=== PATIENT | female | born 1950 | race Caucasian/White ===

== ENCOUNTER → 2017-09-09 | Outpatient (CLI) | payer MEDICARE, OTHER ==
[~2017-09-09] MED LIST: ASPI81CH PO; CIPR500 PO; CLOP75 PO; DOCU100 PO; ENOX40I SC; Flomax0.4 MG PO; GABA100; HYDCHL12.5 PO; IBUP800 PO; LISI20 PO; LISI5 PO; LOVA40 PO; METF500 PO; NAPR500 PO; Norco 10-325 T1 EACH PO; OMEP20ER PO; OXYACE7.5T PO; OXYC5 PO; PHENA200 PO; PROACE100 PO; Percocet 5-3251 EACH PO; Zofran Odt4 MG SL
== END | disposition home or self-care (01) ==
LOC: LAB UCHC 08:05
DX: R39.11 Hesitancy of micturition (principal)
CPT/HCPCS: 87086

== ENCOUNTER → 2018-07-03 | Outpatient (CLI) | payer MEDICARE, OTHER | END | disposition home or self-care (01) | LOC: LAB SHORT 10:21 → LAB 10:21 | DX: R35.0 Frequency of micturition (principal) | CPT/HCPCS: 87077; 87086; 87186 ==

== ENCOUNTER → 2019-09-20 | Outpatient (CLI) | payer MEDICARE ==
[~2019-09-20] MED LIST changes: +Aspir 8181 MG PO; +CYCL10 PO; +GABA100 PO; +HYDCHL25 PO; +OMEPRAZOLE20 MG PO; +TAMS.4ER PO; +TOPROL XL25 MG PO
[2019-09-21 14:07] LABS: Stool Occult Bld Immuno 1 Negative (NEGATIVE); Stool Occult Bld Immuno 2 Negative (NEGATIVE); Stool Occult Bld Immuno 3 Negative (NEGATIVE)
== END ==
LOC: LAB 09:57 → LAB SHORT 09:57 → LAB FUT 09-07 09:35
PROVIDERS: Nurse Practitioner Family
DX: D64.9 Anemia, unspecified (principal)
CPT/HCPCS: 82274

== ENCOUNTER 2019-12-21 05:46 | Day surgery (SDC) | payer MEDICARE ==
[~2019-12-21] VITALS: Ht 152.4 cm; Wt 100.0 kg
[~2019-12-21 05:46] MED LIST changes: +Imdur30 MG PO; +LIDO700A20 TOP
--- NOTE | 2019-12-21 10:15 | NUR ---
TR band deflated, site appears stable, no active bleeding or oozing noted. TR band remains on right wrist with arm board. Will continue to monitor. Call light in reach.
--- NOTE | 2019-12-21 10:33 | NUR ---
Pt getting dressed, daughter called for ride home. Right wrist still has TR band in place with no air in, arm board on for support. Site appears soft, non tender with no active bleeding, oozing, or pain noted. Pt ambulates with slow steady gait, unmeasured void. Denies SOB or CP. Discharge instructions reviewed with pt. Verbalized understanding, paperwork provided for her to take home. Encouraged to follow up with provider as scheduled.
--- NOTE | 2019-12-21 10:53 | NUR ---
TR band removed, red cloth dot dressing applied, site appears to be soft non tender with no active bleeding, oozing, or pain. Arm board on for support. IV removed from LAC with cath intact, pressure dressing applied. Pt daughter is on her way to drive pt home. Personal belongings placed in bag, pt request to be taken out to private vehicle via w/c. VSS.
== END 2019-12-21 11:15 | disposition home or self-care (01) ==
LOC: MHTC 05:46
PROC: 4A023N7 Measurement of Cardiac Sampling and Pressure, Left Heart, Percutaneous Approach (ICD-10-PCS; principal; 2019-12-21)
PROC: B201YZZ Plain Radiography of Multiple Coronary Arteries using Other Contrast (ICD-10-PCS; principal; 2019-12-21)
PROC: B205YZZ Plain Radiography of Left Heart using Other Contrast (ICD-10-PCS; principal; 2019-12-21)
DX: I25.10 Atherosclerotic heart disease of native coronary artery without angina pectoris (principal); E66.9 Obesity, unspecified; I10 Essential (primary) hypertension; E78.5 Hyperlipidemia, unspecified; K21.9 Gastro-esophageal reflux disease without esophagitis; E11.9 Type 2 diabetes mellitus without complications; Z79.82 Long term (current) use of aspirin; Z79.84 Long term (current) use of oral hypoglycemic drugs; Z79.02 Long term (current) use of antithrombotics/antiplatelets; Z68.41 Body mass index [BMI] 40.0-44.9, adult
CPT/HCPCS: 76937; 93454; 99152; C1769; C1894; J1644; J2250; J3010; J7030; Q9967

== ENCOUNTER 2020-01-18 21:14 | Emergency (ER) | payer MEDICARE ==
[~2020-01-18] VITALS: Ht 152.4 cm; Wt 99.8 kg
[2020-01-18 21:41] LABS: BASOPHILS ABSOLUTE AUTO 0.04 K/mm3 (0.00-0.23); BASOPHILS PERCENT AUTO 0 % (0-2); EOSINOPHILS ABSOLUTE AUTO 0.13 K/mm3 (0.00-0.68); EOSINOPHILS PERCENT AUTO 1 % (0-6); Hematocrit 39.1 % (33.0-51.0); Hemoglobin 12.5 g/dL (11.5-16.0); IMMATURE GRAN ABSOLUTE AUTO 0.06 K/mm3 (0.00-0.10); IMMATURE GRAN PERCENT AUTO 0 % (0-1); LYMPHOCYTES ABSOLUTE AUTO 2.65 K/mm3 (0.84-5.20); LYMPHOCYTES PERCENT AUTO 19 % (21-46); MONOCYTES ABSOLUTE AUTO 0.97 K/mm3 (0.16-1.47); MONOCYTES PERCENT AUTO 7 % (4-13); Mean Corpuscular HGB 28.7 pg (26.0-34.0); Mean Corpuscular Volume 90 fL (80-100); NEUTROPHILS PERCENT AUTO 73 % (41-73); Platelet Count 451 K/mm3 (150-400); RDW Coefficient Variation 13.8 % (11.7-14.2); RDW Standard Deviation 44.8 fL (35.1-46.3); Red Blood Cell Count 4.36 M/mm3 (3.80-5.20); White Blood Cell Count 14.35 K/mm3 (4.00-11.30)
[2020-01-18 22:00] LABS: Alanine Aminotransfer (ALT/SGP 14 U/L (12-78); Albumin, Blood 3.3 g/dL (3.4-5.0); Alk Phos 56 U/L (50-136); Anion Gap 7 mmol/L (6-16); Aspartate Aminotrans (AST/SGOT 6 U/L (12-37); Bilirubin, Total 0.3 mg/dL (0.1-1.0); Blood Urea Nitrogen 14 mg/dL (8-24); Bun/Creatinine Ratio 21.9 (12.0-20.0); CO2, Blood 28 mmol/L (21-32); Calcium, Blood 9.1 mg/dL (8.5-10.1); Chloride, Blood 102 mmol/L (98-108); Creatinine, Blood 0.64 mg/dL (0.40-1.00); Globulin, Blood 3.4 g/dL (2.2-4.0); Glomerular Filtration Rate >60 (60-); Glucose, Blood 134 mg/dL (70-99); Sodium, Blood 137 mmol/L (136-145); Total Protein, Blood 6.7 g/dL (6.4-8.2); Troponin I <0.015 ng/mL (0.000-0.040)
[2020-01-18 23:11] LABS: Source, Urine Clean Catch
[2020-01-18 23:15] LABS: Bilirubin, Urine Neg (Neg); Blood, Urine 4+ (Neg); Glucose Qualitative, Urine Neg (Neg); Ketones, Urine Neg (Neg); Leukocyte Esterase, Urine 2+ (Neg); Nitrite, Urine Neg (Neg); Protein, Urine 2+ (Neg); Urobilinogen, Urine NORM (Normal)
[2020-01-18 23:16] LABS: Appearance, Urine Clear (Clear); Color, Urine Yellow (P-Yellow)
[2020-01-18 23:21] LABS: Bacteria Mod /hpf; Squamous Epithelial Cells Few /hpf (Few)
== END 2020-01-18 23:57 | disposition home or self-care (01) ==
LOC: ER 21:14
PROVIDERS: Emergency Medicine
DX: R07.9 Chest pain, unspecified (principal); Z79.82 Long term (current) use of aspirin; Z79.899 Other long term (current) drug therapy
CPT/HCPCS: 80053; 81001; 84484; 85025; 87086; 93005; 93010; 99285-25

== ENCOUNTER 2020-05-27 17:47 | Observation (INO) | payer MEDICARE ==
[~2020-05-27] VITALS: Ht 152.4 cm; Wt 109.9 kg
[~2020-05-27 17:47] MED LIST changes: +Lovastatin10 MG PO
[2020-05-27 18:30] LABS: BASOPHILS ABSOLUTE AUTO 0.02 K/mm3 (0.00-0.23); BASOPHILS PERCENT AUTO 0 % (0-2); EOSINOPHILS ABSOLUTE AUTO 0.01 K/mm3 (0.00-0.68); EOSINOPHILS PERCENT AUTO 0 % (0-6); Hematocrit 40.6 % (33.0-51.0); Hemoglobin 12.7 g/dL (11.5-16.0); IMMATURE GRAN ABSOLUTE AUTO 0.17 K/mm3 (0.00-0.10); IMMATURE GRAN PERCENT AUTO 1 % (0-1); LYMPHOCYTES ABSOLUTE AUTO 0.84 K/mm3 (0.84-5.20); LYMPHOCYTES PERCENT AUTO 4 % (21-46); MONOCYTES ABSOLUTE AUTO 1.34 K/mm3 (0.16-1.47); MONOCYTES PERCENT AUTO 7 % (4-13); Mean Corpuscular HGB 29.1 pg (26.0-34.0); Mean Corpuscular HGB Conc 31.3 g/dL (31.5-36.5); Mean Corpuscular Volume 93 fL (80-100); Mean Platelet Volume 9.2 fL (9.1-12.4); NEUTROPHILS ABSOLUTE AUTO 17.86 K/mm3 (1.96-9.15); NEUTROPHILS PERCENT AUTO 88 % (41-73); Platelet Count 286 K/mm3 (150-400); RDW Coefficient Variation 12.6 % (11.7-14.2); RDW Standard Deviation 43.4 fL (35.1-46.3); Red Blood Cell Count 4.37 M/mm3 (3.80-5.20); White Blood Cell Count 20.24 K/mm3 (4.00-11.30)
[2020-05-27 18:54] LABS: Alanine Aminotransfer (ALT/SGP 15 U/L (12-78); Albumin/Globulin Ratio 0.8 (0.8-1.8); Alk Phos 75 U/L (50-136); Anion Gap 12 mmol/L (6-16); Aspartate Aminotrans (AST/SGOT 19 U/L (12-37); Bilirubin, Total 0.7 mg/dL (0.1-1.0); Blood Urea Nitrogen 28 mg/dL (8-24); Bun/Creatinine Ratio 32.5 (12.0-20.0); CO2, Blood 25 mmol/L (21-32); Calcium, Blood 9.6 mg/dL (8.5-10.1); Chloride, Blood 102 mmol/L (98-108); Creatinine, Blood 0.86 mg/dL (0.40-1.00); Globulin, Blood 3.6 g/dL (2.2-4.0); Glomerular Filtration Rate >60 (60-); Glucose, Blood 151 mg/dL (70-99); Potassium, Blood 3.6 mmol/L (3.5-5.5); Sodium, Blood 139 mmol/L (136-145); Total Protein, Blood 6.6 g/dL (6.4-8.2)
[2020-05-27 19:27] LABS: Source, Urine Clean Catch
[2020-05-27 19:29] LABS: Appearance, Urine Hazy (Clear); Bilirubin, Urine Neg (Neg); Blood, Urine 4+ (Neg); Color, Urine Amber (P-Yellow); Glucose Qualitative, Urine Neg (Neg); Ketones, Urine Neg (Neg); Leukocyte Esterase, Urine 3+ (Neg); Nitrite, Urine Neg (Neg); Protein, Urine 3+ (Neg); Specific Gravity, Urine 1.015 (1.003-1.022); Urobilinogen, Urine NORM (Normal)
[2020-05-27 19:38] LABS: Bacteria Many /hpf; Squamous Epithelial Cells Few /hpf (Few); White Blood Cells, Urine TNTC /hpf (0-5)
[2020-05-27 19:39] LABS: Influenza A, PCR Negative (NEGATIVE); Influenza B, PCR Negative (NEGATIVE); Resp Syncytial Virus, PCR Negative (NEGATIVE); SARS-Cov-2 (COVID-19) PCR, MMC Negative (NEGATIVE)
[2020-05-27] MEDS ORDERED: KEFLEX500 MG PO (21:02)
[2020-05-27] MEDS ORDERED: NEURONTIN300 MG PO (21:55)
[2020-05-27] MEDS ORDERED: ISOSORBIDE MONO60 MG PO (21:55)
[2020-05-27] MEDS ORDERED: GLUCOPHAGE1000 M3 PO (21:56)
--- NOTE | 2020-05-27 23:00 | NUR ---
PT ARRIVED FROM ER VIA STRETCHER; SLIDER SHEET USED TO SLIDE PT OVER TO BED; DENIES CHEST PAIN; BP SOFT; HR 102; O2 SATS >93 ON RA; PT STATES RA BASELINE; PT IS A&O X 3-4; ANSWERS MOST QUESTIONS APPROPRIATELY, AT TIMES ANSWERS DO NOT SEEM TO LINE UP; NS INFUSING IN LEFT HAND IV; PT STATES SHE GETS UTI'S FREQUENTLY "ALWAYS THIS TIME OF YEAR"; ORIENTED TO ROOM, CALL LIGHT AND SAFETY; CALL LIGHT IN REACH; BED IN LOWES POSITION.
--- NOTE | 2020-05-28 03:59 | NUR ---
UPDATE PT SHIVERING UNCONTROLABLY, STATES SHE IS COLD; VSS; ORAL TEMP NOTED OF 100.7; TYLENOL ADMINISTERED PER EMAR; CALL LIGHT IN REACH; BED IN LOWEST POSITION; BED ALARM ON
--- NOTE | 2020-05-28 06:49 | NUR ---
SHIFT SUMMARY PT TEMP CLIMBED TO 102.7; CURRENTLY DOWN TO 99.9 AFTER TYLENOL AND REMOVING BLAKENTS; PT HAD INCONTINENT BM THIS AM; DENITRATOR ASSISTED W/ BED BATH; VSS; HR ELEVATES W/ AMBULATION FOR BRP; PT PLACED ON 2L NC WHEN SHE WAS EXPERIENCING SHIVERING EPISODE DUE TO SOB; PT NO LONGER SHIVERING AND NOW STATES SHE IS HOT; CALLS APPROPRIATELY; SKID FREE SOCKS IN PLACE AND EDUCATED ON FPR; CALL LIGHT IN REACH; BED IN LOWEST POSITION; BED ALARM ON; WILL CONTINUE TO MONITOR CLOSELY UNTIL HAND OFF TO DAY SHIFT RN.
[2020-05-28 09:16] LABS: BASOPHILS ABSOLUTE AUTO 0.04 K/mm3 (0.00-0.23); BASOPHILS PERCENT AUTO 0 % (0-2); EOSINOPHILS ABSOLUTE AUTO 0.01 K/mm3 (0.00-0.68); EOSINOPHILS PERCENT AUTO 0 % (0-6); Hematocrit 33.6 % (33.0-51.0); Hemoglobin 10.9 g/dL (11.5-16.0); IMMATURE GRAN ABSOLUTE AUTO 0.14 K/mm3 (0.00-0.10); IMMATURE GRAN PERCENT AUTO 1 % (0-1); LYMPHOCYTES ABSOLUTE AUTO 0.33 K/mm3 (0.84-5.20); LYMPHOCYTES PERCENT AUTO 2 % (21-46); MONOCYTES ABSOLUTE AUTO 1.12 K/mm3 (0.16-1.47); MONOCYTES PERCENT AUTO 6 % (4-13); Mean Corpuscular HGB 29.7 pg (26.0-34.0); Mean Corpuscular HGB Conc 32.4 g/dL (31.5-36.5); Mean Corpuscular Volume 92 fL (80-100); Mean Platelet Volume 9.5 fL (9.1-12.4); NEUTROPHILS ABSOLUTE AUTO 16.05 K/mm3 (1.96-9.15); NEUTROPHILS PERCENT AUTO 91 % (41-73); Platelet Count 204 K/mm3 (150-400); RDW Coefficient Variation 12.8 % (11.7-14.2); RDW Standard Deviation 42.3 fL (35.1-46.3); Red Blood Cell Count 3.67 M/mm3 (3.80-5.20); White Blood Cell Count 17.69 K/mm3 (4.00-11.30)
[2020-05-28 09:33] LABS: Alanine Aminotransfer (ALT/SGP 15 U/L (12-78); Albumin, Blood 2.3 g/dL (3.4-5.0); Albumin/Globulin Ratio 0.8 (0.8-1.8); Alk Phos 68 U/L (50-136); Anion Gap 10 mmol/L (6-16); Aspartate Aminotrans (AST/SGOT 15 U/L (12-37); Bilirubin, Total 0.6 mg/dL (0.1-1.0); Blood Urea Nitrogen 24 mg/dL (8-24); Bun/Creatinine Ratio 32.1 (12.0-20.0); CO2, Blood 21 mmol/L (21-32); Calcium, Blood 7.8 mg/dL (8.5-10.1); Chloride, Blood 113 mmol/L (98-108); Creatinine, Blood 0.75 mg/dL (0.40-1.00); Glomerular Filtration Rate >60 (60-); Glucose, Blood 235 mg/dL (70-99); Potassium, Blood 3.7 mmol/L (3.5-5.5); Sodium, Blood 144 mmol/L (136-145); Total Protein, Blood 5.3 g/dL (6.4-8.2)
--- NOTE | 2020-05-28 12:46 | NUR ---
AT 1130, PATIENT STATED THAT SHE WAS "STARTING TO GET THE SHAKES". SHE HAD JUST RETURNED FROM THE BATHROOM. VSS. TEMP 98.2. SMALL SHAKES NOTED. SPO2 IN 90'S ON RA. PATIENT REQUESTING TYLENOL FOR PAIN IN HER BACK AND "ALL OVER" R/T SHAKING YESTERDAY. AT 1205, PATIENT STATED THAT SHAKING WAS "GETTING WORSE". I COULD SEE THAT SHE WAS SHAKING. SHE HAD BLANKETS OVER HER. SPO2 NOTED TO BE 88% ON RA, PLACED HER ON 2L O2 VIA NC. TEMP 98.0. WHEEZES NOTED IN UPPER LOBES. HEART RATE UP TO THE 1TEENS, SINUS TACH. ADMINISTERED TYLENOL FOR PAIN. NOTIFIED DR. PATE OF SHAKING, TEMP, AND WHEEZING. DR. PATE REVIEWED CHART. NO NEW ORDERS RECEIVED AT THIS TIME.
--- NOTE | 2020-05-28 13:00 | NUR ---
PATIENT UP TO BATHROOM WITH SBA. STATES THAT HER SHAKES HAVE GOTTEN "MUCH BETTER". ABLE TO STAND AND AMBULATE TO THE BATHROOM WITH SBA.
--- NOTE | 2020-05-28 14:11 | NUR ---
CALLED DR. PATE. NOTIFIED HER THAT PATIENT'S TEMPERATURE SPIKED TO 101.8 TEMPORALLY, 102.2 ORALLY. HEART RATE IN THE 90'S. PATIENT RECEIVED TYLENOL [address] PO [address] PATE ORDERED AZITHROMYCIN 500 MG PO DAILY STARTING NOW. SAID SHE WILL BE BY TO SEE THE PATIENT LATER.
--- NOTE | 2020-05-28 19:25 | NUR ---
SHIFT SUMMARY: PATIENT A/OX3. MEDICATED FOR BACK PAIN WITH TYLENOL WITH GOOD EFFECT, PATIENT STATES PAIN IS R/T THE HOSPITAL BED. 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 HAD TEMP THIS AFTERNOON 102.2, MD AWARE AND AZITHROMYCIN STARTED, TEMP DOWN TO 98.2. HAD EPISODE OF SHIVERING, ELEVATED HEART RATE, AND NEEDED 2L OXYGEN FOR SPO2 <90%, MD NOTIFIED. EPISODE RESOLVED ON ITS OWN. PATIENT ON ROOM AIR AT THIS TIME. UP WITH SBA TO BATHROOM. GAVE PATIENT EDUCATION ON MEDICATIONS AND SEPSIS DIAGNOSIS WELL A [place]...Exactly WORD SEARCH PER HER REQUEST. REPORT GIVEN TO JACKIE CARPENTER.
[2020-05-29 04:10] LABS: BASOPHILS ABSOLUTE AUTO 0.01 K/mm3 (0.00-0.23); BASOPHILS PERCENT AUTO 0 % (0-2); EOSINOPHILS ABSOLUTE AUTO 0.04 K/mm3 (0.00-0.68); EOSINOPHILS PERCENT AUTO 0 % (0-6); Hematocrit 33.8 % (33.0-51.0); Hemoglobin 10.5 g/dL (11.5-16.0); IMMATURE GRAN ABSOLUTE AUTO 0.09 K/mm3 (0.00-0.10); IMMATURE GRAN PERCENT AUTO 1 % (0-1); LYMPHOCYTES ABSOLUTE AUTO 0.84 K/mm3 (0.84-5.20); LYMPHOCYTES PERCENT AUTO 7 % (21-46); MONOCYTES ABSOLUTE AUTO 1.52 K/mm3 (0.16-1.47); MONOCYTES PERCENT AUTO 12 % (4-13); Mean Corpuscular HGB 28.6 pg (26.0-34.0); Mean Corpuscular HGB Conc 31.1 g/dL (31.5-36.5); Mean Corpuscular Volume 92 fL (80-100); NEUTROPHILS ABSOLUTE AUTO 9.99 K/mm3 (1.96-9.15); NEUTROPHILS PERCENT AUTO 80 % (41-73); Platelet Count 189 K/mm3 (150-400); RDW Coefficient Variation 12.8 % (11.7-14.2); RDW Standard Deviation 43.5 fL (35.1-46.3); Red Blood Cell Count 3.67 M/mm3 (3.80-5.20); White Blood Cell Count 12.49 K/mm3 (4.00-11.30)
[2020-05-29 04:22] LABS: Anion Gap 5 mmol/L (6-16); Blood Urea Nitrogen 18 mg/dL (8-24); Bun/Creatinine Ratio 23.9 (12.0-20.0); CO2, Blood 26 mmol/L (21-32); Calcium, Blood 8.4 mg/dL (8.5-10.1); Chloride, Blood 112 mmol/L (98-108); Creatinine, Blood 0.75 mg/dL (0.40-1.00); Glomerular Filtration Rate >60 (60-); Glucose, Blood 176 mg/dL (70-99); Potassium, Blood 3.9 mmol/L (3.5-5.5); Sodium, Blood 143 mmol/L (136-145)
--- NOTE | 2020-05-29 07:37 | NUR ---
RECEIVED REPORT FROM PAULINE PARR. ASSUMING CARE OF PT. PT IS RESTING QUIETLY IN BED WITH TV ON, CALL LIGHT WITHIN REACH.
--- NOTE | 2020-05-29 07:39 | NUR ---
SHIFT SUMMARY PT WAS FEBRILE AT START OF SHIFT, 101F, SHAKING AND STATED HAVING DIFFICULTIES BREATHING, O2 SATS DROPPED INTO THE 80'S. GOT PT SETTLED BACK IN BED, GAVE PRN ACETAMINOPHEN, AND PT WAS PUT ON CPAP PER PT REQUEST STATING SHE WEARS ONE AT HOME. O2 SATS, SHAKING, AND FEVER RESOLVED AND PT WAS ABLE TO SLEEP. PT TOOK OF CPAP AND O2 SATS WERE HIGH 80'S, WHEN PT WOKE UP O2 SATS RESOLVED BACK TO THE 90'S. VITALS WERE STABLE. PT HAD AN OTHERWISE UNEVENTFUL NIGHT. WILL CONTINUE TO MONITOR UNTIL SHIFT CHANGE.
--- NOTE | 2020-05-29 17:39 | NUR ---
SHIFT SUMMARY: PT CONTINUES A&OX4 T/OUT SHIFT, STAYED AFEBRILE W/NO CHILLS OR EPISODES OF TACHYCARDIA. PT C/O CHRONIC LOW BACK PAIN, PT MEDICATED WITH LIDOCAINE PATCH PER DR PATE. PT ABLE TO AMBULATE TO AND FROM RESTROOM, TOLERATES WELL WITH MINIMAL DESATURATION. CURRENTLY, PT RESTING IN BEDSIDE CHAIR ON ROOM AIR, MAINTAINING O2 SAT >93%. WILL CONTINUE TO MONITOR AND TREAT ACCORDINGLY UNTIL REPORT TO ONCOMING RN.
[2020-05-30 04:33] LABS: BASOPHILS ABSOLUTE AUTO 0.02 K/mm3 (0.00-0.23); BASOPHILS PERCENT AUTO 0 % (0-2); EOSINOPHILS ABSOLUTE AUTO 0.13 K/mm3 (0.00-0.68); EOSINOPHILS PERCENT AUTO 1 % (0-6); Hematocrit 31.4 % (33.0-51.0); Hemoglobin 10.1 g/dL (11.5-16.0); IMMATURE GRAN ABSOLUTE AUTO 0.08 K/mm3 (0.00-0.10); IMMATURE GRAN PERCENT AUTO 1 % (0-1); LYMPHOCYTES ABSOLUTE AUTO 1.19 K/mm3 (0.84-5.20); LYMPHOCYTES PERCENT AUTO 12 % (21-46); MONOCYTES ABSOLUTE AUTO 1.19 K/mm3 (0.16-1.47); MONOCYTES PERCENT AUTO 12 % (4-13); Mean Corpuscular HGB 29.2 pg (26.0-34.0); Mean Corpuscular HGB Conc 32.2 g/dL (31.5-36.5); Mean Corpuscular Volume 91 fL (80-100); Mean Platelet Volume 10.4 fL (9.1-12.4); NEUTROPHILS ABSOLUTE AUTO 7.63 K/mm3 (1.96-9.15); NEUTROPHILS PERCENT AUTO 75 % (41-73); Platelet Count 179 K/mm3 (150-400); RDW Standard Deviation 42.5 fL (35.1-46.3); Red Blood Cell Count 3.46 M/mm3 (3.80-5.20); White Blood Cell Count 10.24 K/mm3 (4.00-11.30)
[2020-05-30 04:51] LABS: Anion Gap 4 mmol/L (6-16); Blood Urea Nitrogen 16 mg/dL (8-24); Bun/Creatinine Ratio 27.9 (12.0-20.0); CO2, Blood 26 mmol/L (21-32); Calcium, Blood 8.5 mg/dL (8.5-10.1); Chloride, Blood 110 mmol/L (98-108); Creatinine, Blood 0.57 mg/dL (0.40-1.00); Glomerular Filtration Rate >60 (60-); Glucose, Blood 147 mg/dL (70-99); Sodium, Blood 140 mmol/L (136-145)
--- NOTE | 2020-05-30 05:27 | NUR ---
SHIFT SUMMARY PT WAS PLEASENT AND COOPERATIVE WITH CARE. DENIED ANY CHEST PAIN OR SOB. DID NOT HAVE A FEVER. PT SLEPT WITH CPAP ON WITH 2LPM BLEED-IN AND O2 SATS WERE IN THE 90'S. ON ROOM AIR WHEN AWAKE WITH O2 SATS ABOVE 90%. PT STATED MILD DISCOMFORT IN HER SHOULDER, HEAT PAD WAS PLACED ON SHOULDER AND PT WAS ABLE TO SLEEP. VITALS WERE STABLE WITH BP 120-130'S SYSTOLIC, HR IN THE 80'S. PT HAD A VERY QUIET UNEVENTFUL NIGHT. WILL CONTINUE TO MONITOR UNTIL SHIFT CHANGE.
[2020-05-30] MEDS ORDERED: CEFD300 PO (12:24)
[2020-05-30] MEDS ORDERED: LIDOCAINE1 EAC1 TOP (12:25)
[2020-05-30] MEDS ORDERED: ACET325 PO (12:25)
== END 2020-05-30 12:50 | disposition home or self-care (01) ==
LOC: ER 17:47 → PCU 17:48
PROVIDERS: Emergency Medicine; Student in an Organized Health Care Education/Training Program; ADMIT Internal Medicine
DX: A41.9 Sepsis, unspecified organism (principal); N39.0 Urinary tract infection, site not specified; R65.20 Severe sepsis without septic shock; B96.20 Unspecified Escherichia coli [E. coli] as the cause of diseases classified elsewhere; B95.2 Enterococcus as the cause of diseases classified elsewhere; N20.0 Calculus of kidney; E86.0 Dehydration; I10 Essential (primary) hypertension; E11.9 Type 2 diabetes mellitus without complications; Z79.84 Long term (current) use of oral hypoglycemic drugs; Z79.82 Long term (current) use of aspirin; Z79.02 Long term (current) use of antithrombotics/antiplatelets; Z79.899 Other long term (current) drug therapy; Z86.73 Personal history of transient ischemic attack (TIA), and cerebral infarction without residual deficits; Z96.652 Presence of left artificial knee joint; Z87.440 Personal history of urinary (tract) infections; Z20.828 Contact with and (suspected) exposure to other viral communicable diseases; Z87.442 Personal history of urinary calculi
CPT/HCPCS: 0241U; 36415; 71045; 71250; 76770; 80048; 80053; 81001; 82947; 83605; 83880; 85025; 87077; 87086; 87186; 94660; 94762; 96361; 96365; 99285-25; A9270; A9270-GY; J0696; J1650; J7030

== ENCOUNTER → 2020-07-21 | Outpatient (CLI) | payer MEDICARE ==
[~2020-07-21] MED LIST changes: +ACET325 PO; +CEFD300 PO; +GLUCOPHAGE1000 M3 PO; +ISOSORBIDE MONO60 MG PO; +KEFLEX500 MG PO; +LIDOCAINE1 EAC1 TOP; +NEURONTIN300 MG PO
== END | disposition home or self-care (01) ==
LOC: LAB SHORT 12:54 → LAB 12:54
DX: N39.0 Urinary tract infection, site not specified (principal)
CPT/HCPCS: 87077; 87086; 87186

== ENCOUNTER → 2020-09-01 | Outpatient (CLI) | payer MEDICARE ==
[2020-09-01 12:08] LABS: Source, Urine Clean Catch
[2020-09-01 18:58] LABS: Appearance, Urine Hazy (Clear); Bilirubin, Urine Neg (Neg); Blood, Urine 1+ (Neg); Color, Urine Yellow (P-Yellow); Glucose Qualitative, Urine Neg (Neg); Ketones, Urine Neg (Neg); Leukocyte Esterase, Urine 3+ (Neg); Nitrite, Urine Pos (Neg); Protein, Urine 2+ (Neg); Specific Gravity, Urine 1.015 (1.003-1.022); Urobilinogen, Urine NORM (Normal)
[2020-09-01 19:05] LABS: Red Blood Cells, Urine Rare /hpf (0-2); Squamous Epithelial Cells Few /hpf (Few); White Blood Cells, Urine TNTC /hpf (0-5)
[2020-09-01 19:06] LABS: Bacteria Many /hpf
== END | disposition home or self-care (01) ==
LOC: LAB SHORT 12:05 → LAB 12:05
PROVIDERS: Family Medicine
DX: R35.0 Frequency of micturition (principal)
CPT/HCPCS: 81001; 87077; 87086; 87186

== ENCOUNTER → 2021-02-03 | Outpatient (CLI) | payer MEDICARE ==
[2021-02-03 17:19] LABS: Creatinine, Urine Random 64.1 mg/dL (27.00-270.00)
[2021-02-03 17:22] LABS: Microalb/Creat Ratio UR, Rand 47.426 mg/g (0.000-30.000); Microalbumin, Random Urine 30.4 mg/L (0.000-20.000)
== END | disposition home or self-care (01) ==
LOC: LAB SHORT 13:51 → LAB 13:51 → LAB FUT 11-14 13:40
PROVIDERS: Family Medicine
DX: E11.9 Type 2 diabetes mellitus without complications (principal)
CPT/HCPCS: 82043; 82570

== ENCOUNTER → 2021-03-14 | Outpatient (CLI) | payer MEDICARE | END | disposition home or self-care (01) | LOC: LAB SHORT 17:45 | DX: N39.0 Urinary tract infection, site not specified (principal) | CPT/HCPCS: 87077; 87086; 87186 ==

== ENCOUNTER → 2021-03-30 | Outpatient (CLI) | payer MEDICARE | END | disposition home or self-care (01) | LOC: LAB SHORT 09:00 | DX: N39.0 Urinary tract infection, site not specified (principal) | CPT/HCPCS: 87077; 87086; 87186 ==

== ENCOUNTER 2021-07-09 03:58 | Emergency (ER) | payer MEDICARE ==
[~2021-07-09] VITALS: Ht 157.5 cm; Wt 99.8 kg
[2021-07-09 04:23] LABS: Source, Urine Clean Catch
[2021-07-09 04:32] LABS: Blood, Urine 5+ (Neg); Glucose Qualitative, Urine Neg (Neg); Ketones, Urine Neg (Neg); Leukocyte Esterase, Urine 3+ (Neg); Nitrite, Urine Pos (Neg); Protein, Urine 3+ (Neg); Urobilinogen, Urine 1+ (Normal)
[2021-07-09 04:44] LABS: Appearance, Urine Cloudy (Clear); Bilirubin, Urine 1+ (Neg); Color, Urine Yellow (P-Yellow)
[2021-07-09 04:45] LABS: Bacteria Many /hpf; Red Blood Cells, Urine 50-100 /hpf (0-2); Squamous Epithelial Cells Not Seen /hpf (Few); White Blood Cells, Urine TNTC /hpf (0-5)
[2021-07-09] MEDS ORDERED: CEFD300 PO (04:56)
== END 2021-07-09 05:32 | disposition home or self-care (01) ==
LOC: ER 03:58
PROVIDERS: Emergency Medicine
DX: N39.0 Urinary tract infection, site not specified (principal); Z79.899 Other long term (current) drug therapy; Z79.82 Long term (current) use of aspirin; Z79.84 Long term (current) use of oral hypoglycemic drugs; Z86.73 Personal history of transient ischemic attack (TIA), and cerebral infarction without residual deficits
CPT/HCPCS: 81001; 87077; 87086; 87186; A9270

== ENCOUNTER 2021-07-29 02:34 | Emergency (ER) | payer MEDICARE ==
[~2021-07-29] VITALS: Ht 152.4 cm; Wt 103.4 kg
[2021-07-29 02:52] LABS: Source, Urine Clean Catch
[2021-07-29 02:54] LABS: Bilirubin, Urine Neg (Neg); Blood, Urine 5+ (Neg); Glucose Qualitative, Urine Neg (Neg); Ketones, Urine Neg (Neg); Leukocyte Esterase, Urine 3+ (Neg); Nitrite, Urine Neg (Neg); Protein, Urine 3+ (Neg); Urobilinogen, Urine NORM (Normal)
[2021-07-29 02:55] LABS: Appearance, Urine Cloudy (Clear); Color, Urine Pale Yellow (P-Yellow)
[2021-07-29 03:00] LABS: Bacteria Mod /hpf; Red Blood Cells, Urine 0-2 /hpf (0-2); Squamous Epithelial Cells Rare /hpf (Few); Transitional Epithelial Cells Few /hpf (0-Rare); White Blood Cells, Urine TNTC /hpf (0-5)
[2021-07-29 07:10] LABS: BASOPHILS ABSOLUTE AUTO 0.05 K/mm3 (0.00-0.23); BASOPHILS PERCENT AUTO 1 % (0-2); EOSINOPHILS ABSOLUTE AUTO 0.15 K/mm3 (0.00-0.68); EOSINOPHILS PERCENT AUTO 2 % (0-6); Hematocrit 37.4 % (33.0-51.0); IMMATURE GRAN ABSOLUTE AUTO 0.01 K/mm3 (0.00-0.10); IMMATURE GRAN PERCENT AUTO 0 % (0-1); LYMPHOCYTES ABSOLUTE AUTO 1.63 K/mm3 (0.84-5.20); LYMPHOCYTES PERCENT AUTO 17 % (21-46); MONOCYTES PERCENT AUTO 8 % (4-13); Mean Corpuscular HGB 29.9 pg (26.0-34.0); Mean Corpuscular HGB Conc 32.1 g/dL (31.5-36.5); Mean Corpuscular Volume 93 fL (80-100); Mean Platelet Volume 8.9 fL (9.1-12.4); NEUTROPHILS ABSOLUTE AUTO 6.94 K/mm3 (1.96-9.15); NEUTROPHILS PERCENT AUTO 72 % (41-73); Platelet Count 383 K/mm3 (150-400); RDW Coefficient Variation 13.6 % (11.7-14.2); RDW Standard Deviation 46.6 fL (35.1-46.3); Red Blood Cell Count 4.02 M/mm3 (3.80-5.20); White Blood Cell Count 9.58 K/mm3 (4.00-11.30)
[2021-07-29 07:28] LABS: Alanine Aminotransfer (ALT/SGP 14 U/L (12-78); Albumin, Blood 3.3 g/dL (3.4-5.0); Alk Phos 48 U/L (50-136); Anion Gap 5 mmol/L (6-16); Aspartate Aminotrans (AST/SGOT 7 U/L (12-37); Bilirubin, Total 0.3 mg/dL (0.1-1.0); Blood Urea Nitrogen 12 mg/dL (8-24); Bun/Creatinine Ratio 17.1 (12.0-20.0); CO2, Blood 31 mmol/L (21-32); Calcium, Blood 8.9 mg/dL (8.5-10.1); Chloride, Blood 106 mmol/L (98-108); Globulin, Blood 3.2 g/dL (2.2-4.0); Glomerular Filtration Rate >60 (60-); Glucose, Blood 105 mg/dL (70-99); Potassium, Blood 3.5 mmol/L (3.5-5.5); Sodium, Blood 142 mmol/L (136-145); Total Protein, Blood 6.5 g/dL (6.4-8.2)
[2021-07-29] MEDS ORDERED: Cipro500 MG PO (08:04)
== END 2021-07-29 08:19 | disposition home or self-care (01) ==
LOC: ER 02:34
PROVIDERS: Student in an Organized Health Care Education/Training Program
DX: N39.0 Urinary tract infection, site not specified (principal); I10 Essential (primary) hypertension; E11.9 Type 2 diabetes mellitus without complications; Z79.82 Long term (current) use of aspirin; Z79.84 Long term (current) use of oral hypoglycemic drugs; Z79.899 Other long term (current) drug therapy; Z86.73 Personal history of transient ischemic attack (TIA), and cerebral infarction without residual deficits
CPT/HCPCS: 36415; 80053; 81001; 85025; 87086; 96374; 99283; J0696

== ENCOUNTER 2021-08-29 01:58 | Emergency (ER) | payer MEDICARE ==
[~2021-08-29] VITALS: Ht 152.4 cm; Wt 101.2 kg
[~2021-08-29 01:58] MED LIST changes: +Cipro500 MG PO
[2021-08-29 02:26] LABS: Source, Urine Clean Catch
[2021-08-29 02:28] LABS: Bilirubin, Urine Neg (Neg); Blood, Urine 4+ (Neg); Glucose Qualitative, Urine Neg (Neg); Ketones, Urine Neg (Neg); Leukocyte Esterase, Urine 3+ (Neg); Nitrite, Urine Neg (Neg); Protein, Urine 3+ (Neg); Specific Gravity, Urine 1.015 (1.003-1.022); Urobilinogen, Urine NORM (Normal)
[2021-08-29 02:31] LABS: Appearance, Urine Turbid (Clear); Color, Urine Pale Yellow (P-Yellow)
[2021-08-29 02:35] LABS: Bacteria Many /hpf; Red Blood Cells, Urine 0-2 /hpf (0-2); Squamous Epithelial Cells Rare /hpf (Few); White Blood Cells, Urine TNTC /hpf (0-5)
[2021-08-29] MEDS ORDERED: CEPH500 PO (02:39)
== END 2021-08-29 03:06 | disposition home or self-care (01) ==
LOC: ER 01:58
PROVIDERS: Student in an Organized Health Care Education/Training Program
DX: N39.0 Urinary tract infection, site not specified (principal); I10 Essential (primary) hypertension; E11.9 Type 2 diabetes mellitus without complications; Z79.899 Other long term (current) drug therapy
CPT/HCPCS: 81001; 87077; 87086; 87186; 99283; A9270

== ENCOUNTER → 2022-01-07 | Outpatient (CLI) | payer MEDICARE ==
[~2022-01-07] MED LIST changes: +CEPH500 PO
[2022-01-09 10:01] LABS: C DIFFICILE DNA NEGATIVE (Negative)
== END | disposition home or self-care (01) ==
LOC: LAB SHORT 17:00 → LAB 17:00 → LAB SHORT 01-08 13:46
PROVIDERS: Family Medicine
DX: K52.9 Noninfective gastroenteritis and colitis, unspecified (principal)
CPT/HCPCS: 87493

== ENCOUNTER → 2022-05-01 | Outpatient (CLI) | payer MEDICARE ==
[2022-05-04 15:10] LABS: FATS, NEUTRAL Normal (.); FATS, TOTAL Normal (.)
== END ==
LOC: LAB SHORT 15:26 → LAB 15:26
PROVIDERS: Internal Medicine Gastroenterology
DX: K52.9 Noninfective gastroenteritis and colitis, unspecified (principal)
CPT/HCPCS: 82705; 83993

== ENCOUNTER → 2022-07-03 | Outpatient (CLI) | payer MEDICARE ==
[2022-07-03 13:44] LABS: BASOPHILS ABSOLUTE AUTO 0.05 K/mm3 (0.00-0.23); BASOPHILS PERCENT AUTO 1 % (0-2); EOSINOPHILS ABSOLUTE AUTO 0.15 K/mm3 (0.00-0.68); EOSINOPHILS PERCENT AUTO 2 % (0-6); Hematocrit 39.1 % (33.0-51.0); IMMATURE GRAN ABSOLUTE AUTO 0.03 K/mm3 (0.00-0.10); IMMATURE GRAN PERCENT AUTO 0 % (0-1); LYMPHOCYTES ABSOLUTE AUTO 1.84 K/mm3 (0.84-5.20); LYMPHOCYTES PERCENT AUTO 20 % (21-46); MONOCYTES ABSOLUTE AUTO 0.69 K/mm3 (0.16-1.47); MONOCYTES PERCENT AUTO 8 % (4-13); Mean Corpuscular HGB 30.7 pg (26.0-34.0); Mean Corpuscular HGB Conc 33.2 g/dL (31.5-36.5); Mean Corpuscular Volume 92 fL (80-100); Mean Platelet Volume 9.3 fL (9.1-12.4); NEUTROPHILS ABSOLUTE AUTO 6.33 K/mm3 (1.96-9.15); NEUTROPHILS PERCENT AUTO 70 % (41-73); Platelet Count 359 K/mm3 (150-400); RDW Coefficient Variation 12.3 % (11.7-14.2); RDW Standard Deviation 41.7 fL (35.1-46.3); Red Blood Cell Count 4.23 M/mm3 (3.80-5.20); White Blood Cell Count 9.09 K/mm3 (4.00-11.30)
[2022-07-03 15:29] LABS: Percent Saturation 30.1 % (15.0-50.0)
[2022-07-03 16:04] LABS: Thyroid Stimulating Hormone 1.12 uIU/mL (0.360-4.800)
== END | disposition home or self-care (01) ==
LOC: LAB 09:13 → LAB SHORT 09:13
PROVIDERS: Student in an Organized Health Care Education/Training Program
DX: E11.40 Type 2 diabetes mellitus with diabetic neuropathy, unspecified (principal); G45.9 Transient cerebral ischemic attack, unspecified; R53.83 Other fatigue; I10 Essential (primary) hypertension; Z86.2 Personal history of diseases of the blood and blood-forming organs and certain disorders involving the immune mechanism; Z79.899 Other long term (current) drug therapy
CPT/HCPCS: 82306; 82607; 82728; 82746; 83540; 83550; 84443; 85025

== ENCOUNTER → 2023-08-20 | Outpatient (CLI) | payer MEDICARE | END | disposition home or self-care (01) | LOC: LAB SHORT 08:55 → LAB 08:55 | DX: E11.21 Type 2 diabetes mellitus with diabetic nephropathy (principal) | CPT/HCPCS: 82043 ==

== ENCOUNTER 2024-05-07 17:41 | Emergency (ER) | payer MEDICARE ==
[~2024-05-07] VITALS: Ht 152.4 cm; Wt 105.7 kg
[2024-05-07 17:56] VITALS: BP 138/88
== END 2024-05-07 19:54 | disposition left against medical advice (07) ==
LOC: ER 17:41
DX: S09.90XA Unspecified injury of head, initial encounter (principal); Z53.21 Procedure and treatment not carried out due to patient leaving prior to being seen by health care provider
CPT/HCPCS: 99281

== ENCOUNTER 2024-05-08 10:28 | Emergency (ER) | payer MEDICARE ==
[~2024-05-08] VITALS: Ht 152.4 cm; Wt 105.7 kg
[2024-05-08 10:29] VITALS: BP 156/84
== END 2024-05-08 12:48 | disposition home or self-care (01) ==
LOC: ER 10:28
DX: S00.83XA Contusion of other part of head, initial encounter (principal); W19.XXXA Unspecified fall, initial encounter; Z79.84 Long term (current) use of oral hypoglycemic drugs; Z79.899 Other long term (current) drug therapy
CPT/HCPCS: 70450; 99283-25

== ENCOUNTER 2024-05-14 12:52 | Emergency (ER) | payer MEDICARE ==
[~2024-05-14] VITALS: Ht 182.9 cm; Wt 101.2 kg
[2024-05-14 13:30] LABS: BASOPHILS ABSOLUTE AUTO 0.02 K/mm3 (0.00-0.23); BASOPHILS PERCENT AUTO 0 % (0-2); EOSINOPHILS PERCENT AUTO 1 % (0-6); Hematocrit 39.7 % (33.0-51.0); Hemoglobin 13.4 g/dL (11.5-16.0); IMMATURE GRAN ABSOLUTE AUTO 0.08 K/mm3 (0.00-0.10); IMMATURE GRAN PERCENT AUTO 1 % (0-1); LYMPHOCYTES ABSOLUTE AUTO 1.31 K/mm3 (0.84-5.20); LYMPHOCYTES PERCENT AUTO 8 % (21-46); MONOCYTES ABSOLUTE AUTO 1.21 K/mm3 (0.16-1.47); MONOCYTES PERCENT AUTO 8 % (4-13); Mean Corpuscular HGB 30.9 pg (26.0-34.0); Mean Corpuscular HGB Conc 33.8 g/dL (31.5-36.5); Mean Corpuscular Volume 92 fL (80-100); NEUTROPHILS PERCENT AUTO 83 % (41-73); Platelet Count 353 K/mm3 (150-400); RDW Coefficient Variation 13.2 % (11.7-14.2); Red Blood Cell Count 4.33 M/mm3 (3.80-5.20); White Blood Cell Count 15.52 K/mm3 (4.00-11.30)
[2024-05-14 14:05] LABS: Albumin, Blood 3.3 g/dL (3.4-5.0); Albumin/Globulin Ratio 1.1 (0.8-1.8); Bilirubin, Total 0.4 mg/dL (0.1-1.0); Calcium, Blood 8.8 mg/dL (8.5-10.1); Creatinine, Blood 0.67 mg/dL (0.40-1.00); Globulin, Blood 3.1 g/dL (2.2-4.0); Magnesium, Blood 1.8 mg/dL (1.6-2.4); Total Protein, Blood 6.4 g/dL (6.4-8.2)
[2024-05-14 15:06] LABS: Source, Urine Clean Catch
[2024-05-14 15:14] LABS: Appearance, Urine Hazy (Clear); Bilirubin, Urine Neg (Neg); Blood, Urine Neg (Neg); Color, Urine Yellow (P-Yellow); Glucose Qualitative, Urine Neg (Neg); Ketones, Urine Neg (Neg); Leukocyte Esterase, Urine 2+ (Neg); Nitrite, Urine Pos (Neg); Protein, Urine 1+ (Neg); Urobilinogen, Urine NORM (Normal)
[2024-05-14 15:25] LABS: Bacteria Many /hpf; Red Blood Cells, Urine 0-2 /hpf (0-2); Squamous Epithelial Cells Few /hpf (Few); White Blood Cells, Urine 50-100 /hpf (0-5)
[2024-05-14] MEDS ORDERED: CEPH500 PO (15:35)
[2024-05-14 15:41] VITALS: BP 116/80
== END 2024-05-14 15:42 | disposition home or self-care (01) ==
LOC: ER 12:52
PROVIDERS: Student in an Organized Health Care Education/Training Program
DX: R41.0 Disorientation, unspecified (principal); R47.01 Aphasia; N30.00 Acute cystitis without hematuria; E11.9 Type 2 diabetes mellitus without complications; E78.5 Hyperlipidemia, unspecified; K21.9 Gastro-esophageal reflux disease without esophagitis; I10 Essential (primary) hypertension; Z86.73 Personal history of transient ischemic attack (TIA), and cerebral infarction without residual deficits; Z79.82 Long term (current) use of aspirin; Z79.02 Long term (current) use of antithrombotics/antiplatelets; Z79.84 Long term (current) use of oral hypoglycemic drugs; Z79.899 Other long term (current) drug therapy
CPT/HCPCS: 70450; 80053; 81001; 83735; 85025; 93005; 93010; 99285-25

== ENCOUNTER → 2024-06-15 | Outpatient (CLI) | payer MEDICARE | END | disposition home or self-care (01) | LOC: LAB 17:15 → LAB SHORT 17:15 | DX: G44.85 Primary stabbing headache (principal) | CPT/HCPCS: 85651; 86140 ==

== ENCOUNTER 2025-01-02 16:16 | Observation (INO) | payer MEDICARE, OTHER ==
[~2025-01-02] VITALS: Ht 152.4 cm; Wt 107.5 kg
[2025-01-02 16:55] LABS: BASOPHILS ABSOLUTE AUTO 0.04 K/mm3 (0.00-0.23); BASOPHILS PERCENT AUTO 1 % (0-2); EOSINOPHILS ABSOLUTE AUTO 0.24 K/mm3 (0.00-0.68); EOSINOPHILS PERCENT AUTO 3 % (0-6); Hematocrit 39.4 % (33.0-51.0); Hemoglobin 13.0 g/dL (11.5-16.0); IMMATURE GRAN ABSOLUTE AUTO 0.02 K/mm3 (0.00-0.10); IMMATURE GRAN PERCENT AUTO 0 % (0-1); LYMPHOCYTES ABSOLUTE AUTO 1.50 K/mm3 (0.84-5.20); LYMPHOCYTES PERCENT AUTO 17 % (21-46); MONOCYTES ABSOLUTE AUTO 0.82 K/mm3 (0.16-1.47); MONOCYTES PERCENT AUTO 9 % (4-13); Mean Corpuscular HGB Conc 33.0 g/dL (31.5-36.5); Mean Corpuscular Volume 95 fL (80-100); NEUTROPHILS ABSOLUTE AUTO 6.11 K/mm3 (1.96-9.15); NEUTROPHILS PERCENT AUTO 70 % (41-73); NRBC ABSOLUTE 0.00 K/mm3 (0.00-0.02); NRBC Auto 0.0 /100 WBC (0.0-0.2); Platelet Count 355 K/mm3 (150-400); RDW Coefficient Variation 12.1 % (11.7-14.2); RDW Standard Deviation 42.2 fL (35.1-46.3)
[2025-01-02 17:11] LABS: Prothrombin Time Results 10.6 Sec (9.7-11.5)
[2025-01-02] MEDS ORDERED: OxyCODONE 10/Acetamin 325 TABLET PO ONE (17:15)
[2025-01-02 17:16] LABS: Alanine Aminotransfer (ALT/SGP 18.0 U/L (12-78); Albumin, Blood 3.6 g/dL (3.4-5.0); Albumin/Globulin Ratio 1.1 (0.8-1.8); Anion Gap 9.0 mmol/L (3-11); Aspartate Aminotrans (AST/SGOT 16.0 U/L (12-37); Bilirubin, Total 0.3 mg/dL (0.1-1.0); Blood Urea Nitrogen 10.0 mg/dL (8-24); CO2, Blood 28.0 mmol/L (21-32); Calcium, Blood 9.7 mg/dL (8.5-10.1); Chloride, Blood 104.0 mmol/L (98-108); Creatinine, Blood 0.6 mg/dL (0.40-1.00); Globulin, Blood 3.4 g/dL (2.2-4.0); Glucose, Blood 125.0 mg/dL (70-99); Potassium, Blood 3.8 mmol/L (3.5-5.5); Sodium, Blood 137.0 mmol/L (136-145); Total Protein, Blood 7.0 g/dL (6.4-8.2)
[2025-01-02] MEDS ORDERED: NS 1,000 ML IV SCH (20:25)
[2025-01-02] MEDS ORDERED: Ondansetron HCl 2 MG / ML 2ML Vial IV PRN (20:25)
[2025-01-02 21:43] VITALS: BP 105/91
--- NOTE | 2025-01-03 03:09 | NUR ---
SHIFT SUMMARY: PT ARRIVED TO UNIT AT ~2130. PT ANSWERS ORIENTATION QUESTIONS APPROPRIATELY BUT IS A POOR HISTORIAN. WHILE DISCUSSING HER LIVING SITUATION, PT COULD NOT REMEMBER WHOM SHE LIVED WITH, OR WHEN/WHAT MEDICATIONS SHE TAKES. PT DID ADMIT TO RECENT FALLS A WEEK AGO WELL. BED ALARM IS ON. CALL LIGHT IS WITHIN REACH. BED IS LOW AND LOCKED.
[2025-01-03 04:31] VITALS: BP 147/71
[2025-01-03 07:29] VITALS: BP 123/87
[2025-01-03] MEDS ORDERED: Insulin Human Lispro 100 Units/ML 3ML Syringe SC SCH (07:30)
[2025-01-03] MEDS ORDERED: Enoxaparin 40 MG/0.4 ML SYR SC SCH (09:00)
[2025-01-03] MEDS ORDERED: ATOR40TA PO (13:00)
--- NOTE | 2025-01-03 13:50 | NUR ---
DISCHARGE REVIEWED DISCHARGE INSTRUCTIONS W/PATIENT AND DAUGHTER WHO VERBALIZED UNDERSTANDING, IV & TELE REMOVED, PT TRANSPORRTED OUT VIA WHEELCHAIR TO DISCHARGE IN RPIVATE VEHICLE W/RESPONSIBLE TUBE DEPATCHER @ 1320, ALL BELONGINGS SENT W/PATIENT.
== END 2025-01-03 13:24 | disposition home or self-care (01) ==
LOC: ER 16:16 → MEDS 16:17
PROVIDERS: Emergency Medicine; Student in an Organized Health Care Education/Training Program; ADMIT Student in an Organized Health Care Education/Training Program
DX: G45.9 Transient cerebral ischemic attack, unspecified (principal); Q21.12 Patent foramen ovale; I10 Essential (primary) hypertension; G47.33 Obstructive sleep apnea (adult) (pediatric); E78.5 Hyperlipidemia, unspecified; E11.9 Type 2 diabetes mellitus without complications; E66.01 Morbid (severe) obesity due to excess calories; Z68.42 Body mass index [BMI] 45.0-49.9, adult; Z79.02 Long term (current) use of antithrombotics/antiplatelets; Z79.82 Long term (current) use of aspirin; Z79.84 Long term (current) use of oral hypoglycemic drugs; Z79.899 Other long term (current) drug therapy
CPT/HCPCS: 70450; 70496; 70498; 70551; 80053; 82947; 84484; 85025; 85610; 85730; 93005; 93010; 96372; 99285-25; A9270; G0378; J1650; Q9967

== ENCOUNTER → 2025-01-18 | Outpatient (CLI) | payer MEDICARE, OTHER ==
[~2025-01-18] MED LIST changes: +ATOR40TA PO
== END ==
LOC: LAB SHORT 18:41 → LAB 18:41
DX: R30.0 Dysuria (principal)
CPT/HCPCS: 87086